=== PATIENT | female | born 1995 | race Caucasian/White ===

== ENCOUNTER 2017-08-17 00:03 | Emergency (ER) | payer OTHER ==
[2017-08-17] MEDS: ACETAMINOPHEN 500 MG TAB PO ×2 (05:13→05:15)
[2017-08-17] MEDS: HYDROCODONE/APAP (10/325) TAB PO (05:33)
== END 2017-08-17 06:47 | disposition home or self-care (01) ==
LOC: FTE 00:03
DX: S02.2XXA Fracture of nasal bones, initial encounter for closed fracture (principal); S09.90XA Unspecified injury of head, initial encounter; S00.83XA Contusion of other part of head, initial encounter; R40.2142 Coma scale, eyes open, spontaneous, at arrival to emergency department; R40.2252 Coma scale, best verbal response, oriented, at arrival to emergency department; R40.2362 Coma scale, best motor response, obeys commands, at arrival to emergency department; V49.50XA Passenger injured in collision with unspecified motor vehicles in traffic accident, initial encounter
CPT/HCPCS: 70450; 70486; 99285-25

== ENCOUNTER 2017-09-20 17:18 | Emergency (ER) | payer SELFPAY, OTHER | END 2017-09-20 18:27 | disposition left against medical advice (07) | LOC: FTE 17:18 | DX: Z53.21 Procedure and treatment not carried out due to patient leaving prior to being seen by health care provider (principal) ==

== ENCOUNTER 2017-10-25 19:51 | Emergency (ER) | payer OTHER ==
[2017-10-25 20:51] LABS: URINE BLOOD (Dip) POC Negative (NEGATIVE); URINE GLUCOSE (Dip) POC Negative (NEGATIVE); URINE KETONES (Dip) POC Negative (NEGATIVE); URINE LEUKOCYTE EST (Dip) POC Negative (NEGATIVE); URINE NITRITE (Dip) POC Negative (NEGATIVE); URINE TOTAL PROTEIN POC Negative (NEGATIVE)
== END 2017-10-25 21:00 | disposition home or self-care (01) ==
LOC: FTE 19:51
DX: B35.0 Tinea barbae and tinea capitis (principal)
CPT/HCPCS: 81003; 99283

== ENCOUNTER 2018-03-09 01:02 | Emergency (ER) | payer OTHER ==
[2018-03-09] MEDS: KETOROLAC 60 MG INJ IM (01:34)
== END 2018-03-09 01:55 | disposition home or self-care (01) ==
LOC: FTE 01:02
DX: J02.9 Acute pharyngitis, unspecified (principal)
CPT/HCPCS: 81025; 96372; 99284-25

== ENCOUNTER 2018-03-29 12:26 | Emergency (ER) | payer OTHER ==
[2018-03-29] MEDS: ALBUTEROL 0.083% (NEB) 2.5 MG/3 ML AMP HHN (13:53)
[2018-03-29] MEDS: IPRATROPIUM (NEB) 0.5 MG/2.5 ML AMP HHN (13:54)
== END 2018-03-29 15:04 | disposition home or self-care (01) ==
LOC: FTE 12:26
DX: R05 Cough (principal); R07.9 Chest pain, unspecified
CPT/HCPCS: 71046; 81025; 93005; 94664; 99284-25

== ENCOUNTER 2018-07-13 22:47 | Emergency (ER) | payer SELFPAY, OTHER | END 2018-07-13 23:50 | disposition left against medical advice (07) | LOC: E/R 22:47 | DX: Z53.21 Procedure and treatment not carried out due to patient leaving prior to being seen by health care provider (principal) ==

== ENCOUNTER 2018-07-20 02:50 | Emergency (ER) | payer OTHER ==
[2018-07-20] MEDS: IBUPROFEN 600 MG TAB PO (03:33)
== END 2018-07-20 03:51 | disposition home or self-care (01) ==
LOC: FTE 03:51
DX: S80.12XA Contusion of left lower leg, initial encounter (principal); W50.1XXA Accidental kick by another person, initial encounter; Y92.9 Unspecified place or not applicable
CPT/HCPCS: 99283; Z7502

== ENCOUNTER 2018-07-27 11:04 | Emergency (ER) | payer OTHER | END 2018-07-27 14:28 | disposition left against medical advice (07) | LOC: FTE 14:28 | DX: Z53.21 Procedure and treatment not carried out due to patient leaving prior to being seen by health care provider (principal) ==